=== PATIENT | female | born 1970 | race Caucasian/White ===

== ENCOUNTER 2018-05-02 04:29 | Emergency (ER) | payer OTHER ==
[~2018-05-02] VITALS: Ht 165.1 cm; Wt 65.8 kg
[2018-05-02] MEDS ORDERED: PROTONIX40 MG (04:50)
[2018-05-02] MEDS ORDERED: ZANTAC300 MG (04:50)
[2018-05-02] MEDS ORDERED: WELLBUTRIN XL150 M1 (04:50)
[2018-05-02] MEDS ORDERED: LEVSIN0.125 MG (04:51)
== END 2018-05-02 11:39 | disposition home or self-care (01) ==
LOC: ER 04:29
DX: K29.70 Gastritis, unspecified, without bleeding (principal)

== ENCOUNTER 2018-05-08 11:29 | Day surgery (SDC) | payer OTHER ==
[~2018-05-08 11:29] MED LIST: LEVSIN0.125 MG; PROTONIX40 MG; WELLBUTRIN XL150 M1; ZANTAC300 MG
== END 2018-05-08 17:20 | disposition home or self-care (01) ==
LOC: AMB-ENDOS 11:29 → ADM 05-11 12:30 → AMB-ENDOS 05-15 12:30
DX: R19.4 Change in bowel habit (principal); K64.8 Other hemorrhoids